=== PATIENT | male | born 1955 | race Caucasian/White ===

== ENCOUNTER 2017-01-09 06:58 | Day surgery (SDC) | payer OTHER ==
[2017-01-09 07:15] VITALS: BMI 24.2
[2017-01-09 07:40] LABS: BASOPHIL 1.3 % (0-2.0); EOSINOPHIL 3.4 % (0-4.5); MCH 29.1 pg (25.7-33.7); MCHC 33.1 g/dl (32.0-35.9); MEAN PLT VOLUME 8.2 fl (7.5-11.1); NEUTROPHILS 55.3 % (42.8-82.8); PLATELET COUNT 368 K/MM3 (134-434); RDW 13.3 % (11.9-15.9); WHITE BLOOD COUNT 8.1 K/mm3 (4.0-10.8)
[2017-01-09 07:53] VITALS: TEMP 98.1
[2017-01-09 07:56] LABS: ANION GAP 5 (8-16); CALCIUM 9.1 mg/dl (8.4-10.2); CO2 22 mmol/L (22-28); CREATININE 0.9 mg/dl (0.6-1.3); GLUCOSE,RANDOM 95 mg/dl (74-106)
--- NOTE | 2017-01-09 07:56 | HP ---
Admitting History and Physical - Admission History of Present Illness: patient is a 61 y/o male with a past medical history of depression, chronic pain , migraine headache, and degenerative joint disease. Patient presents for ECT, he has received ect in the past and his last ECT was at [facility] last week. patient does report a recent admission at [facility] for depression from 10/26 to 12/27. He report a history of narcotic pills abuse which triggered his depression as result he was admitted to the hospital. He denies any suicidal or homicidal ideation, visual or auditory hallucinations. History Source: Patient Limitations to Obtaining History: No Limitations - Past Surgical History Additional Past Surgical History: left thoractomy - Smoking History Smoking history: Current every day smoker Have you smoked in the past 12 months: Yes Aproximately how many cigarettes per day: 10 - Alcohol/Substance Use Hx Alcohol Use: No History of Substance Use: reports: Prescription Date of Last Use: 10/12/16 - Social History Usual Living Arrangement: Yes: Alone ADL: Independent History of Recent Travel: No Home Medications - Allergies Allergies/Adverse Reactions: Allergies Allergy/AdvReac Type Severity Reaction Status Date / Time No Known Drug Allergies Allergy Verified 01/09/17 07:56 - Home Medications Home Medications: Ambulatory Orders Cyclobenzaprine HCl [Flexeril -] 10 mg PO BID 08/29/12 Duloxetine HCl [Cymbalta -] 120 mg PO DAILY 08/29/12 Trazodone HCl 100 mg PO HS 08/29/12 Ibuprofen [Motrin -] 400 mg PO BID PRN 12/10/12 Amitriptyline HCl [Elavil -] 50 mg PO HS 01/04/17 Clonazepam [Klonopin] 0.5 mg PO TID 01/04/17 Family Disease History - Family Disease History Family Disease History: Heart Disease: Father (chf ), Other: Father Review of Systems - Review of Systems Constitutional: reports: No Symptoms Eyes: reports: No Symptoms HENT: reports: No Symptoms Neck: reports: No Symptoms Cardiovascular: reports: No Symptoms Respiratory: reports: No Symptoms Gastrointestinal: reports: No Symptoms Genitourinary: reports: No Symptoms Breasts: reports: No Symptoms Reported Musculoskeletal: reports: No Symptoms Integumentary: reports: No Symptoms Neurological: reports: No Symptoms Endocrine: reports: No Symptoms Hematology/Lymphatic: reports: No Symptoms Psychiatric: reports: No Symptoms Physical Examination Constitutional: Yes: Well Nourished, No Distress, Calm Eyes: Yes: WNL, Conjunctiva Clear, EOM Intact HENT: Yes: WNL, Atraumatic, Normocephalic Neck: Yes: WNL, Supple, Trachea Midline Cardiovascular: Yes: WNL, Regular Rate and Rhythm, S1, S2 Respiratory: Yes: WNL, Regular, CTA Bilaterally Gastrointestinal: Yes: WNL, Normal Bowel Sounds, Soft ...Rectal Exam: Yes: Deferred Renal/: Yes: WNL Breast(s): Yes: WNL Musculoskeletal: Yes: WNL Extremities: Yes: WNL Edema: No Peripheral Pulses WNL: Yes Integumentary: Yes: WNL Neurological: Yes: WNL, Alert, Oriented ...Motor Strength: WNL Psychiatric: Yes: WNL, Alert, Oriented Labs: CBC, BMP 01/09/17 07:37 CMP Sodium 132 mmol/L (136-145) L 01/09/17 07:37 Potassium 4.2 mmol/L (3.5-5.1) 01/09/17 07:37 Chloride 105 mmol/L (98-107) 01/09/17 07:37 Carbon Dioxide 22 mmol/L (22-28) 01/09/17 07:37 Anion Gap 5 (8-16) L 01/09/17 07:37 BUN 15 mg/dl (7-18) 01/09/17 07:37 Creatinine 0.9 mg/dl (0.6-1.3) 01/09/17 07:37 Random Glucose 95 mg/dl (74-106) 01/09/17 07:37 Calcium 9.1 mg/dl (8.4-10.2) 01/09/17 07:37 Imaging - Results EKG: Other (nsr no ischemic changes) Assessment/Plan pt is a 61 y/o male that presents for ect, he has received ect in the past and denies any adverse reaction to anesthesia labs and ekg reviewed pt is medically optimized for procedure
[2017-01-09] MEDS ORDERED: KETAMINE HCL 500 MG/10 ML VIAL ONE (09:06)
[2017-01-09 10:33] VITALS: BP 129/79; PULSE 81
--- NOTE | 2017-01-10 08:22 | EKG ---
Test Reason : Blood Pressure : / mmHG Vent. Rate : 080 BPM Atrial Rate : 080 BPM P-R Int : 134 ms QRS Dur : 072 ms QT Int : 346 ms P-R-T Axes : 005 -11 021 degrees QTc Int : 399 ms SINUS RHYTHM Delayed R wave progression NO PREVIOUS ECGS AVAILABLE Confirmed by RENNY GREGORY MD ([id number] on 01/10/2017 8:22:05 AM Referred By: Harshal Machuca Confirmed By:RENNY GREGORY MD
== END 2017-01-09 10:05 | disposition home or self-care (01) ==
LOC: FECT 06:58
PROVIDERS: ATTEND Psychiatry & Neurology Psychiatry
PROC: GZB4ZZZ Other Electroconvulsive Therapy (ICD-10-PCS; principal; 2017-01-09 07:30)
DX: F33.2 Major depressive disorder, recurrent severe without psychotic features (principal)
CPT/HCPCS: 36415; 80048; 85025; 90870; 93005; 93010; 94760